=== PATIENT | male | born 1955 | race Caucasian/White ===

== ENCOUNTER 2017-04-09 14:59 | Emergency (ER) | payer OTHER ==
[2017-04-09 15:19] VITALS: TEMP 98.1; BMI 25.0
--- NOTE | 2017-04-09 16:24 | PDOC ---
History of Present Illness - General History Source: Patient, Family () Exam Limitations: No Limitations - History of Present Illness Initial Comments: 04/09/17 16:49 The patient is a 61 year old male presenting with his , with a significant past medical history of HLD, who presents to the emergency department with groin pain / burning for over a month. He describes the pain / burning sensation , constant in nature, ranging from mild to moderate, with radiation to his buttocks. He denies any modifying factors. He notes that during this time frame he was seen by a machine hoop maker twice, for which he was prescribed Alcortin A, a hydrocortizone / antifungal cream to be applied twice a day. He notes that the cream mildly relieved the pain / burning sensation but it has not resolved. The symptoms exacerbated yesterday, and he went to [facility] for evaluation, he was seen by an initial ED physician (Dr. Galvan) who performed a urinalysis which was negative but no blood work was taken. He was prescribed Banophen and Pepsin. Another ED physician (Dr. Ivy) saw him while he was there and was diagnosed with prostate pain and prescribed Gapapentin. He denies any history of this kind of sensation. He denies any rash in the area or any swelling. He states that during this time frame his appetite has been lacking and had lost roughly 10 pounds during this time frame. The patient denies chest pain, shortness of breath, headache and dizziness. Denies fever, chills, nausea, vomit, diarrhea and constipation. Denies dysuria, frequency, urgency and hematuria. Allergies: None Past surgical history: None reported Social history: No alcohol, tobacco or drug use reported PMD - Dr. Ras Nixon Urologist - Dr. Hammond <Jovi Cooper - Last Filed: 04/09/17 16:49> <Cory Jessica - Last Filed: 04/09/17 18:44> - General Chief Complaint: Pain Stated Complaint: GROIN PAIN Time Seen by Provider: 04/09/17 16:22 Past History <Jovi Cooper - Last Filed: 04/09/17 16:49> - Psycho/Social/Smoking Cessation Hx Anxiety: No Suicidal Ideation: No Smoking History: Never smoked Have you smoked in the past 12 months: No Information on smoking cessation initiated: No Hx Alcohol Use: No Drug/Substance Use Hx: No Substance Use Type: None <Cory Jessica - Last Filed: 04/09/17 18:44> - Past Medical History Allergies/Adverse Reactions: Allergies Allergy/AdvReac Type Severity Reaction Status Date / Time No Known Allergies Allergy Verified 04/09/17 15:16 Home Medications: Ambulatory Orders NK [No Known Home Medication] 04/09/17 Review of Systems - Review of Systems Constitutional: Yes: Unintentional Wgt. Loss (6 lbs over last month). No: Chills, Fever, Night Sweats HEENTM: No: Nose Congestion, Throat Swelling Respiratory: No: Cough, Shortness of Breath Cardiac (ROS): No: Chest Pain ABD/GI: No: Nausea, Vomiting : No: Dysuria, Frequency Musculoskeletal: Yes: Muscle Pain Integumentary: No: Rash Endocrine: No: Intolerance to Cold, Intolerance to Heat All Other Systems: Reviewed and Negative <Grey Jessicafaele - Last Filed: 04/09/17 18:44> *Physical Exam - Vital Signs Last Vital Signs Temp Pulse Resp BP Pulse Ox 98.1 F 86 18 123/67 100 04/09/17 15:16 04/09/17 15:16 04/09/17 15:16 04/09/17 15:16 04/09/17 15:16 - Physical Exam Comments: 04/09/17 16:49 GENERAL: The patient is awake, alert, and fully oriented, in no acute distress. HEAD: Normal with no signs of trauma. EYES: Pupils equal, round and reactive to light, extraocular movements intact, sclera anicteric, conjunctiva clear with no pallor. ENT: Ears normal, nares patent, oropharynx clear without exudates. Moist mucous membranes. NECK: Normal range of motion, supple without lymphadenopathy, JVD, or masses. LUNGS: Breath sounds equal, clear to auscultation bilaterally. No wheeze/ crackles. HEART: Regular rate and rhythm, normal S1 and S2 without murmur or rub. ABDOMEN: Soft/nontender/nondistended. BS wnl. No guarding or rebound. No palpable masses. No hepatosplenomegaly. EXTREMITIES: Normal range of motion, no edema. No clubbing or cyanosis. No cords , erythema, or tenderness. NEUROLOGICAL: Cranial nerves II through XII grossly intact. Normal speech, normal gait. PSYCH: Normal mood, normal affect. SKIN: Warm, Dry, normal turgor, no rashes or lesions noted. PENILE EXAM: Uncircumcised, no scrotal swelling. No rash, erythema, warmth, urethral discharge. No inguinal lymphadenopathy or palpable hernia <Jovi Cooper - Last Filed: 04/09/17 16:49> - Vital Signs Last Vital Signs Temp Pulse Resp BP Pulse Ox 98.1 F 86 18 123/67 100 04/09/17 15:16 04/09/17 15:16 04/09/17 15:16 04/09/17 15:16 04/09/17 15:16 <Cory Jessica - Last Filed: 04/09/17 18:44> ED Treatment Course - LABORATORY CBC & Chemistry Diagram: 04/09/17 17:04 04/09/17 17:04 <Cory Jessica - Last Filed: 04/09/17 18:44> Medical Decision Making - Medical Decision Making 04/09/17 16:58 61y/o M h/o high cholesterol on statin p/w persistent groin/upper leg pain for 6 weeks. Has seen a machine hoop maker twice, apparently never had a rash but was treated with a combination anti-fungal/bacterial/steroid cream with slight relief. No injury, no urinary complaints, no motor/sensory deficits. Reports 6- 10 lbs of weight loss over 6 weeks attributed to decreased appetite but no fever /chills/night sweats. This morning the burning/pain was worse so he went to [facility] ED. The initial doctor prescribed him an nsaid and pepcid after a UA was normal, the second doctor prescribed him gabapentin. He presents here for another opinion. VSS well appearing no jaundice or pallor s1s2 rrr, ctab, abd soft/nt/nd bs nl. no hsm normal uncircumsized penis without urethral discharge, no scrotal/epidydimal ttp , no rash or swelling or ttp neuro intact 61y/o M with nonspecific groin pain that radiates to his whole body. Complaints are nonspecific, his exam is nonfocal. There is no evidence of an infectious or vascular process, no palpable hernia or neuro deficit. ? whether this is muscle aches from statin, ? neuropathic pain from lower lumbar disc disease. will check basic labs, which have not been performed since last well visit in November recheck UA trial of tramadol if above wnl, no red flags and can continue oupt f/u, recommendation for outpt MRI to r/o radiculopathy, already has urology f/u scheduled with Dr. Hammond 04/09/17 18:40 Exam unchanged, remains neurovascularly intact. Labs/UA completely normal including CPK. Agree with d/c plan to f/u with Dr. Nixon and Dr. Hammond, to take the previously prescribed gabapentin (? radicular pain). Understands return criteria. <Cory Jessica - Last Filed: 04/09/17 18:44> *DC/Admit/Observation/Transfer - Attestations Scribe Attestion: 04/09/17 16:51 Documentation prepared by Jovi Cooper, acting as medical center director for Cory Jessica MD <Jovi Cooper - Last Filed: 04/09/17 16:49> <Cory Jessica - Last Filed: 04/09/17 18:44> Diagnosis at time of Disposition: Perineal pain in male - Discharge Dispostion Disposition: HOME Condition at time of disposition: Stable - Referrals Referrals: Ras Nixon [Primary Care Provider] - Alma Hammond [Non Staff, Medical] - - Patient Instructions Printed Discharge Instructions: DI for Pelvic Pain Additional Instructions: Activity as tolerated. Stay hydrated. Blood tests and a urine test today showed no acute abnormalities. As discussed, your pain could be due to a nerve pain coming from your spine. Take the Gabapentin that was previously prescribed to you. You can also take your usual aspirin and tamsulosin. Tylenol 1000 mg every 8 hours and/or ibuprofen 600 mg every 8 hours as needed for pain. Continue your medications as previously prescribed by your physician. You should follow up with Dr. Nixon and Dr. Hammond (urology) as soon as possible regarding today's emergency department visit. Consider an MRI of the lumbar/sacral spine as an outpatient. Return to the emergency department for any new or concerning symptoms, particularly persistent or intolerable pain, fever/chills, redness or swelling, difficulty urinating/bowel movement, leg weakness/numbness.
[2017-04-09] MEDS ORDERED: traMADol HCL 50 MG TABLET PO ONE (16:52)
[2017-04-09] MEDS ORDERED: traMADol HCL 50 MG TABLET ONE (16:59)
[2017-04-09 17:10] LABS: BASOPHIL 1.3 % (0-2.0); EOSINOPHIL 0.7 % (0-4.5); MCH 29.7 pg (25.7-33.7); MCHC 33.8 g/dl (32.0-35.9); MEAN CELL VOLUME 87.8 fl (80-96); MEAN PLT VOLUME 8.3 fl (7.5-11.1); NEUTROPHILS 66.9 % (42.8-82.8); PLATELET COUNT 234 K/MM3 (134-434); RDW 12.9 % (11.9-15.9); WHITE BLOOD COUNT 8.1 K/mm3 (4.0-10.0)
[2017-04-09 17:25] LABS: URINE APPEARANCE CLEAR; URINE BILIRUBIN NEGATIVE (NEGATIVE); URINE BLOOD NEGATIVE (NEGATIVE); URINE COLOR COLORLESS; URINE GLUCOSE (UA) NEGATIVE (NEGATIVE); URINE KETONE NEGATIVE (NEGATIVE); URINE LEUK ESTERASE NEGATIVE (NEGATIVE); URINE NITRITE NEGATIVE (NEGATIVE); URINE PROTEIN NEGATIVE (NEGATIVE); URINE UROBILINOGEN NEGATIVE E.U./dl (0.2-1.0)
[2017-04-09 17:40] LABS: ALBUMIN 3.6 g/dl (3.4-5.0); ALK PHOS 80 U/L (45-117); ANION GAP 7 (8-16); BILIRUBIN,TOTAL 0.4 mg/dL (0.2-1.0); CALCIUM 8.5 mg/dL (8.5-10.1); CO2 30 mmol/L (21-32); COCKROFT - GAULT 86.23; CREATININE 0.9 mg/dL (0.7-1.3); GLUCOSE,RANDOM 125 mg/dL (74-106); SGOT/AST 28 U/L (15-37); SGPT/ALT 50 U/L (12-78)
[2017-04-09 18:54] VITALS: BP 115/64; PULSE 81
== END 2017-04-09 18:54 | disposition home or self-care (01) ==
LOC: JER 14:59
DX: R10.2 Pelvic and perineal pain (principal); E78.00 Pure hypercholesterolemia, unspecified
CPT/HCPCS: 36415; 80053; 81003; 82550; 83690; 85025; 99282-25

== ENCOUNTER 2017-04-13 22:20 | Emergency (ER) | payer OTHER ==
[2017-04-13 22:37] VITALS: BP 139/72; PULSE 87; TEMP 98.5; BMI 25.0
--- NOTE | 2017-04-13 23:19 | PDOC ---
History of Present Illness <Bill Myrick - Last Filed: 04/14/17 00:49> - General History Source: Family Exam Limitations: No Limitations - History of Present Illness Initial Comments: 04/14/17 00:31 The patient is a 61 year old male, with a significant past medical history of Prostatitis, who presents to the emergency department with lower abdominal discomfort. The patients son is at bedside who states that he recently visited the urologist where they gave a shot and prescribed the patient Bactrim, Meloxicam and Alfuzosin for prostatitis. The patient also reports chest palpitations associated with his abdominal discomfort and reports to the ED for further evaluation. He denies chest pain, headache or dizziness. He denies fever, chills, nausea, vomit, diarrhea or constipation. He denies dysuria, frequency, urgency or hematuria. Allergies: NKA Past surgical history: None Social history: Denies PCP: Dr. Ras Nixon <Sunni Rosa - Last Filed: 04/14/17 00:53> - General Chief Complaint: Pain, Acute Stated Complaint: INFLAMMATION Time Seen by Provider: 04/13/17 23:18 Past History - Past Medical History GI Disorders: Yes (prostatitis) - Psycho/Social/Smoking Cessation Hx Anxiety: No Suicidal Ideation: No Smoking History: Never smoked Have you smoked in the past 12 months: No Hx Alcohol Use: No Drug/Substance Use Hx: No Substance Use Type: None <Bill Myrick - Last Filed: 04/14/17 00:49> <Sunni Rosa - Last Filed: 04/14/17 00:53> - Past Medical History Allergies/Adverse Reactions: Allergies Allergy/AdvReac Type Severity Reaction Status Date / Time No Known Allergies Allergy Verified 04/13/17 22:35 Home Medications: Ambulatory Orders Alfuzosin HCl [Uroxatral] 10 mg PO DAILY 04/13/17 Meloxicam [Mobic] 15 mg PO TID 04/13/17 Sulfamethoxazole/Trimethoprim [Bactrim Ds -] 1 tab PO BID 04/13/17 Review of Systems - Review of Systems Able to Perform ROS?: Yes Comments:: 04/14/17 00:32 GENERAL/CONSTITUTIONAL: No fever or chills. No weakness. HEAD, EYES, EARS, NOSE AND THROAT: No change in vision. No ear pain or discharge. No sore throat. CARDIOVASCULAR: No chest pain or shortness of breath. RESPIRATORY: No cough, wheezing, or hemoptysis. GASTROINTESTINAL: No nausea, vomiting, diarrhea or constipation. GENITOURINARY: + lower abdominal pain. No dysuria, frequency, or change in urination. MUSCULOSKELETAL: No joint or muscle swelling or pain. No neck or back pain. SKIN: No rash NEUROLOGIC: No headache, vertigo, loss of consciousness, or change in strength/ sensation. ENDOCRINE: No increased thirst. No abnormal weight change. HEMATOLOGIC/LYMPHATIC: No anemia, easy bleeding, or history of blood clots. ALLERGIC/IMMUNOLOGIC: No hives or skin allergy. <Sunni Rosa - Last Filed: 04/14/17 00:53> *Physical Exam - Vital Signs Last Vital Signs Temp Pulse Resp BP Pulse Ox 98.5 F 87 22 139/72 99 04/13/17 22:36 04/13/17 22:36 04/13/17 22:36 04/13/17 22:36 04/13/17 22:36 <Bill Myrick - Last Filed: 04/14/17 00:49> - Vital Signs Last Vital Signs Temp Pulse Resp BP Pulse Ox 98.5 F 87 22 139/72 99 04/13/17 22:36 04/13/17 22:36 04/13/17 22:36 04/13/17 22:36 04/13/17 22:36 - Physical Exam Comments: 04/14/17 00:33 GENERAL: Awake, alert, and fully oriented, in no acute distress HEAD: No signs of trauma EYES: PERRLA, EOMI, sclera anicteric, conjunctiva clear ENT: Auricles normal inspection, hearing grossly normal, nares patent, oropharynx clear without exudates. Moist mucosa NECK: Normal ROM, supple, no lymphadenopathy, JVD, or masses LUNGS: Breath sounds equal, clear to auscultation bilaterally. No wheezes, and no crackles HEART: Regular rate and rhythm, normal S1 and S2, no murmurs, rubs or gallops ABDOMEN: + Bladder distention. Soft, nontender, normoactive bowel sounds. No guarding, no rebound. No masses EXTREMITIES: Normal range of motion, no edema. No clubbing or cyanosis. No cords, erythema, or tenderness NEUROLOGICAL: Cranial nerves II through XII grossly intact. Normal speech, normal gait SKIN: Warm, Dry, normal turgor, no rashes or lesions noted. <Sunni Rosa - Last Filed: 04/14/17 00:53> Medical Decision Making - Medical Decision Making 04/14/17 00:53 Sanon Catheter draining with 900 cc's of urine. <Sunni Rosa - Last Filed: 04/14/17 00:53> *DC/Admit/Observation/Transfer - Discharge Dispostion Admit: No - Attestations Physician Attestion: 04/13/17 23:19 I, Dr. Bill Myrick, attest that this document has been prepared under my direction and personally reviewed by me in its entirety. I further attest, that it accurately reflects all work, treatment, procedures and medical decision -making performed by me. <Bill Myrick - Last Filed: 04/14/17 00:49> - Attestations Scribe Attestion: 04/14/17 00:33 Documentation prepared by Sunni Rosa, acting as medical care evaluation specialist for Bill Myrick MD/DO. <Sunni Rosa - Last Filed: 04/14/17 00:53> Diagnosis at time of Disposition: Acute urinary retention - Discharge Dispostion Disposition: HOME - Referrals Referrals: Ras Nixon [Primary Care Provider] - - Patient Instructions Printed Discharge Instructions: How to Care for Your Sanon Catheter -- Male, DI for Urinary Retention in Men Additional Instructions: Call the Urologist tomorrow. Catheter should stay in for 3 days. Use the Leg Bag during the day. The Big bag at night.
== END 2017-04-14 01:29 | disposition home or self-care (01) ==
LOC: JER 22:20 → SUPCPDRO 22:20 → JER 04-14 01:29
PROC: 0T9B70Z Drainage of Bladder with Drainage Device, Via Natural or Artificial Opening (ICD-10-PCS; principal; 2017-04-13)
DX: R33.8 Other retention of urine (principal); N41.8 Other inflammatory diseases of prostate
CPT/HCPCS: 99282-25

== ENCOUNTER 2021-08-19 19:45 | Emergency (ER) | payer OTHER ==
[2021-08-19 20:03] VITALS: BP 148/70; PULSE 68; TEMP 98.3; BMI 24.5
[2021-08-19] MEDS ORDERED: ACETAMINOPHEN 325 MG TABLET (FP) PO ONE (20:11)
== END 2021-08-19 20:32 | disposition home or self-care (01) ==
LOC: JER 19:45
DX: J02.9 Acute pharyngitis, unspecified (principal); M79.10 Myalgia, unspecified site; Z11.52 Encounter for screening for COVID-19
CPT/HCPCS: 99283-25; C9803; U0003; U0005

== ENCOUNTER 2022-04-23 11:18 | Emergency (ER) | payer OTHER ==
[2022-04-23 11:29] VITALS: BP 118/70; PULSE 68; TEMP 97.8; BMI 24.3
[2022-04-23] MEDS ORDERED: ASPIRIN 81 MG CHEWABLE TABLETS PO ONE (12:55)
[2022-04-23] MEDS ORDERED: ASPIRIN 81 MG CHEWABLE TABLETS ONE (13:16)
[2022-04-23 14:03] LABS: BASO % 1.8 % (0-2.0); EOS % 1.8 % (0-4.5); HEMATOCRIT 39.3 % (35.4-49); HEMOGLOBIN 13.8 GM/dL (11.7-16.9); MCH 30.7 pg (25.7-33.7); MEAN CELL VOLUME 87.9 fl (80-96); MONO % 9.1 % (3.8-10.2); NEUT % 55.3 % (42.8-82.8); PLATELET COUNT 197 10^3/uL (134-434); RBC 4.48 M/mm3 (4.00-5.60); RDW 13.4 % (11.9-15.9); WHITE BLOOD COUNT 4.7 K/mm3 (4.0-10.0)
[2022-04-23 14:31] LABS: CALCIUM 8.5 mg/dL (8.5-10.1)
[2022-04-23 14:32] LABS: BLOOD UREA NITROGEN 18.8 mg/dL (7-18)
[2022-04-23 14:34] LABS: ALBUMIN 3.7 g/dl (3.4-5.0); CREATININE 0.8 mg/dL (0.55-1.3); MAGNESIUM 2.1 mg/dL (1.8-2.4)
[2022-04-23 14:36] LABS: TOT PROT 7.5 g/dl (6.4-8.2)
[2022-04-23 14:38] LABS: BILIRUBIN,TOTAL 0.4 mg/dL (0.2-1)
== END 2022-04-23 17:45 | disposition home or self-care (01) ==
LOC: JER 11:18
DX: R07.9 Chest pain, unspecified (principal)
CPT/HCPCS: 71046-TC-FY; 80053; 83735; 84484; 85025; 93005; 93010; 99285-25

== ENCOUNTER 2024-04-28 07:39 | Emergency (ER) | payer OTHER ==
[2024-04-28 07:56] VITALS: BP 109/72; PULSE 81; RESP 20; TEMP 99.6; BMI 27.3
[2024-04-28] MEDS ORDERED: ACETAMINOPHEN 500 MG TABLET (FP) ONE (08:42)
[2024-04-28] MEDS ORDERED: guaiFENesin/D-METHORPHAN HB 10 ML UNIT-DOSE CUPS ONE (08:42)
[2024-04-28] MEDS: ACETAMINOPHEN 500 MG TABLET (FP) PO ONE (08:45)
[2024-04-28] MEDS: guaiFENesin/D-METHORPHAN HB 10 ML UNIT-DOSE CUPS PO ONE (08:45)
== END 2024-04-28 10:36 | disposition home or self-care (01) ==
LOC: JERFT 07:39 → JER 07:39 → JERFT 10:36
DX: U07.1 COVID-19 (principal); J02.9 Acute pharyngitis, unspecified; R09.81 Nasal congestion; R05.9 Cough, unspecified; R51.9 Headache, unspecified; R52 Pain, unspecified
CPT/HCPCS: 0241U-QW; 99283-25

== ENCOUNTER 2025-05-13 16:10 | Emergency (ER) | payer OTHER ==
[2025-05-13] MEDS ORDERED: ACETAMINOPHEN 325 MG TABLET (FP) ONE (16:47)
[2025-05-13 17:02] VITALS: BP 99/54; PULSE 71; RESP 18; TEMP 97.8; BMI 23.5
[2025-05-13] MEDS: ACETAMINOPHEN 500 MG TABLET (FP) PO ONE (18:39)
[2025-05-13] MEDS ORDERED: IBUPROFEN 400 MG TABLET (FP) PO ONE (19:02)
== END 2025-05-13 20:37 | disposition home or self-care (01) ==
LOC: JER 16:10
DX: M54.2 Cervicalgia (principal); T14.8XXA Other injury of unspecified body region, initial encounter; V87.7XXA Person injured in collision between other specified motor vehicles (traffic), initial encounter; Y92.410 Unspecified street and highway as the place of occurrence of the external cause
CPT/HCPCS: 70450-TC; 71046-TC-FY; 72125-TC; 72128-TC; 72131-TC; 72170-TC-FY; 99284-25